=== PATIENT | female | born 1960 | race Hispanic/Latino ===

== ENCOUNTER 2016-07-15 11:41 | Observation (INO) | payer BC ==
[2016-07-15 11:43] VITALS: BMI 30.2
--- NOTE | 2016-07-15 12:01 | CT ---
PROCEDURE: CT HEAD WITHOUT CONTRAST. HISTORY: Code Stroke COMPARISON: 03/02/2015 TECHNIQUE: Axial computed tomography images were obtained through the head/brain without intravenous contrast. Radiation dose: Total exam DLP = 688.90 mGy-cm. This CT exam was performed using one or more of the following dose reduction techniques: Automated exposure control, adjustment of the mA and/or kV according to patient size, and/or use of iterative reconstruction technique. FINDINGS: HEMORRHAGE: No intracranial hemorrhage. BRAIN: No mass effect or edema. Right frontal encephalomalacia unchanged, consistent with old infarct. No evidence of acute infarct. There is some new curvilinear and punctate calcification in association with the right frontal encephalomalacia, likely dystrophic. VENTRICLES: No hydrocephalus. Ex vacuo dilatation of the frontal horn, right lateral ventricle, consistent with old infarct. CALVARIUM: Unremarkable. PARANASAL SINUSES: Unremarkable as visualized. No significant inflammatory changes. MASTOID AIR CELLS: Unremarkable as visualized. No inflammatory changes. OTHER FINDINGS: None. IMPRESSION: No intracranial hemorrhage. No evidence of acute infarct. 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 These findings were communicated to Dr. Raines by telephone at 11:57 a.m. on 07/15/2016.
[2016-07-15 12:09] LABS: ADD MANUAL DIFF? NO
[2016-07-15 12:14] LABS: BASO # 0.06 K/mm3 (0.0-2.0); BASO % 0.5 % (0.0-3.0); EOS # 0.2 (0.0-0.7); EOS % 1.4 % (1.5-5.0); GRAN # 5.48 (1.4-6.5); GRAN % 48.3 % (50.0-68.0); HEMATOCRIT 43.8 % (36.0-48.0); LYMPH % 44.3 % (22.0-35.0); MEAN CELL VOLUME 89.9 fL (80.0-105.0); MEAN CORPUSCULAR HEMOGLOBIN 30.6 pg (25.0-35.0); MEAN PLATELET VOLUME 12.4 fl (7.0-11.0); MONO # 0.6 (0.1-0.6); MONO % 5.5 % (1.0-6.0); PLATELET COUNT 174 10^3/uL (120.0-450.0); RED CELL DISTRIBUTION WIDTH 12.8 % (11.5-14.5); WHITE BLOOD COUNT 11.4 10^3/ul (4.5-11.0)
--- NOTE | 2016-07-15 12:18 | ED PDOC ---
Arrival/HPI - General Chief Complaint: Altered Mental Status Time Seen by Provider: 07/15/16 11:46 Historian: Patient, Other (friend) - History of Present Illness Narrative History of Present Illness (Text): 07/15/16 13:09 Patient is a 56 year old female with prior history of CVA presents to ED as a "rapid response" from the main lobby reportedly after she was in the car with a friend (passenger side) and friend noticed her to become acutely altered in mental status. Friend describes that she was her "normal self" earlier in the day and when she got in the car. Patient reportedly then suddenly started to "get stiff" and "started shaking" and "spit came from her mouth" for "a few seconds". Friend drove directly to the hospital and brought the patient through the main entrance where patient was brought to the ED. states patient has past history of stroke that has left her with some weakness to the left upper extremity. He also states she has been her normal self and this morning he saw her and she had no symptoms. No recent injury. No history of fevers. Time/Duration: Prior to Arrival Symptom Onset: Sudden Past Medical History - Past History Past History: No Previous - Infectious Disease Hx of Infectious Diseases: None - Tetanus Immunization Tetanus Immunization: Unknown - Past Medical History Past Medical History: No Previous - Cardiac Hx Cardiac Disorders: Yes Hx Hypertension: Yes - Pulmonary Hx Respiratory Disorders: No - Neurological HX Cerebrovascular Accident: Yes (2016 c/ left-sided deficits) - HEENT Hx HEENT Disorder: No - Renal Hx Renal Disorder: No - Endocrine/Metabolic Hx Endocrine Disorders: Yes Hx Diabetes Mellitus Type 2: Yes - Hematological/Oncological Hx Blood Disorders: No - Integumentary Hx Dermatological Disorder: No - Musculoskeletal/Rheumatological Hx Musculoskeletal Disorders: No - Gastrointestinal Hx Gastrointestinal Disorders: No Hx Bowel Surgery: No - Genitourinary/Gynecological Hx Genitourinary Disorders: No - Psychiatric Hx Psychophysiologic Disorder: No Hx Substance Use: No Family/Social History - Physician Review Nursing Documentation Reviewed: Yes Family/Social History: Unknown Family HX Smoking Status: Former Smoker Hx Alcohol Use: No Hx Substance Use: No Allergies/Home Meds Allergies/Adverse Reactions: Allergies No Known Allergies Allergy (Verified 07/15/16 16:51) Home Medications: Home Meds Medication Instructions Recorded Confirmed Aspirin [Aspirin Chewable] 81 mg PO DAILY 07/15/16 07/15/16 Atorvastatin [Lipitor] 80 mg PO DAILY 07/15/16 07/15/16 Losartan Potassium 50 mg PO DAILY 07/15/16 07/15/16 Review of Systems - Review of Systems Systems not reviewed;Unavailable: Altered Mental Status Constitutional: absent: Fevers Respiratory: absent: SOB Cardiovascular: Syncope Neurological: Seizure Physical Exam - Physical Exam Narrative Physical Exam (Text): Head: Atraumatic. Normocephalic. No facial bony tenderness or deformity noted. Eyes: PERRL. Visual acuity grossly intact. No nystagmus noted. ENT: Mucous membranes are moist and intact. Oropharynx is clear and symmetric. Small abrasion to tongue. Neck: Supple. Full ROM. No JVD. No lymphadenopathy. No midline tenderness. Cardiovascular: Tachycardic. Distal pulses intact. Pulmonary/Chest: Tachypneic, but clear lungs bilaterally. Abdominal: Soft and non-distended. There is no tenderness. No rebound, guarding, or rigidity. No organomegaly. Good bowel sounds. Back: No CVA tenderness. No midline tenderness. Extremities: No edema. No cyanosis. No clubbing. Distal pulses intact in lower and upper extremities. Skin: Skin is warm and dry. No petechiae. No purpura. Neurological: Awake. She moves all four extremities with good strength, is attempting to stand up and push herself off stretcher, will follow some commands with [place] civil engineer in training present, answers some questions. No facial droop. Psychiatric: Patient agitated, will follow some commands but is repetitive when answering questions. reports that she has been anxious. 07/15/16 21:02 Vital Signs Reviewed: Yes Vital Signs Temp Pulse Resp BP Pulse Ox 07/15/16 15:26 79 21 114/67 95 07/15/16 12:25 98.1 F 96 H 18 136/70 94 L 07/15/16 11:50 72 27 H 153/59 H 92 L Pulse: Tachycardic Appearance: Positive for: Ill-Appearing Mental Status: Positive for: Agitated Finger Stick Blood Glucose: 96 Medical Decision Making ED Course and Treatment: Patient's history obtained from house doctor who saw patient in [facility], the subsequently who presented to ED. states that she was her typical self this AM, but has had prior stroke BUT NO PRIOR SEIZURE. Patient agitated, confused, tachycardic. No respiratory distress noted. Patient was administered Ativan IM as history possibly suggestive of seizure and she is agitated, requires emergent CT head given acute change in mental status described. CODE STROKE CALLED as symptoms occurred immediately prior to arrival. PROCEDURE: CT HEAD WITHOUT CONTRAST. Field Coil Winder : Krishna Herrera MD Report Date : 07/15/2016 12:00:12 IMPRESSION: No intracranial hemorrhage. No evidence of acute infarct. 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 Chest X-ray Field Coil Winder: Krishna Quintanilla MD IMPRESSION: No active disease Patient on return from CT is re-evaluated, heart rate improved, she is more appropriate, answering questions, has some pain to left shoulder but no deformity noted. Patient has some difficulty moving left arm she states due to pain in shoulder, states she is acting "like herself" now and has had always had some weakness to her left arm after her previous stroke. I have discussed treatment plan with patient and family. Based on witness' description suspect new onset seizure. Case reviewed with Dr. Raul Marquez. Patient was placed on Keppra after reviewed this medication with family. Patient agreeable to treatment plan. NOT TPA CANDIDATE as patient is back to her baseline neurologically, symptoms consistent with seizure after review of history. Given limitations of CT head however, I discussed this with patient and patient' s family and stressed need for inpatient admission for serial neurologic exams and workup for new onset seizure. Patient and agreeable to this plan. Case discussed with Dr. Carrera covering for patient's PMD, who accepts to telemetry for new onset seizure - Lab Interpretations Lab Results: 07/15/16 12:05 07/15/16 12:05 Lab Results 07/15/16 12:05: Blood Type B NEGATIVE, Antibody Screen Negative, BBK History Checked No verified bt 07/15/16 12:05: Hemoglobin A1c 6.4 07/15/16 12:05: Sodium 140, Potassium 3.6, Chloride 106, Carbon Dioxide 16 L, Anion Gap 22 H, BUN 14, Creatinine 0.7, Est GFR ( Amer) > 60, Est GFR ( Non-Af Amer) > 60, Random Glucose 118 H, Calcium 9.2, Total Bilirubin 0.4, AST 47 H, ALT 79 H, Alkaline Phosphatase 72, Troponin I < 0.01, Total Protein 7.4, Albumin 4.3, Globulin 3.1, Albumin/Globulin Ratio 1.4, Triglycerides 144, Cholesterol 137, LDL Cholesterol Direct 60, HDL Cholesterol 54 07/15/16 12:05: PT 10.8, INR 1.00, APTT 23.1 L 07/15/16 12:05: WBC 11.4 H D, RBC 4.87, Hgb 14.9, Hct 43.8, MCV 89.9, MCH 30.6, MCHC 34.0, RDW 12.8, Plt Count 174, MPV 12.4 H, Gran % 48.3 L, Lymph % (Auto) 44.3 H, [place] % (Auto) 5.5, Eos % (Auto) 1.4 L, Baso % (Auto) 0.5, Gran # 5.48, Lymph # 5.0 H, [place] # 0.6, Eos # 0.2, Baso # 0.06 - RAD Interpretation Radiology Orders: 07/15/16 11:47 HEAD W/O (CODE STROKE) [CT] Stat CHEST PORTABLE [RAD] Stat - EKG Interpretation EKG Interpretation (Text): 07/15/16 22:26 EKG at 11:58 sinus tachycardia wirh right bundle branch block Interpreted by ED Physician: Yes Type: 12 lead EKG - Medication Orders Current Medication Orders: Aspirin (Aspirin Chewable) 81 mg PO DAILY [facility] Last Admin: 07/15/16 17:38 Dose: 81 mg Atorvastatin Calcium (Lipitor) 80 mg PO DAILY [facility] Last Admin: 07/15/16 17:41 Dose: 80 mg Carvedilol (Coreg) 3.125 mg PO BID [facility] Last Admin: 07/15/16 21:38 Dose: 3.125 mg Docusate Sodium (Colace) 200 mg PO HS [facility] Last Admin: 07/15/16 21:38 Dose: 200 mg Levetiracetam (Keppra 500mg Ivpb) 500 mg in 100 mls @ 400 mls/hr IV Q12 [facility] Last Admin: 07/15/16 21:37 Dose: 400 mls/hr Lorazepam (Ativan) 1 mg IVP Q6H PRN; Protocol PRN Reason: Anxiety Losartan Potassium (Cozaar) 50 mg PO DAILY [facility] Last Admin: 07/15/16 17:38 Dose: 50 mg Discontinued Medications Levofloxacin/Dextrose (Levaquin 500mg) 500 mg in 100 mls @ 100 mls/hr IVPB ONCE ONE Stop: 07/15/16 14:29 Last Admin: 07/15/16 14:27 Dose: 100 mls/hr Levetiracetam (Keppra 500mg Ivpb) 500 mg in 100 mls @ 400 mls/hr IVPB ONCE ONE Stop: 07/15/16 14:59 Last Admin: 07/15/16 15:37 Dose: 400 mls/hr Lorazepam (Ativan) Confirm Administered Dose 2 mg .ROUTE .STK-MED ONE Stop: 07/15/16 11:46 Last Admin: 07/15/16 12:07 Dose: Lorazepam (Ativan) 2 mg IM ONCE ONE Stop: 07/15/16 11:49 Last Admin: 07/15/16 11:45 Dose: 2 mg Pneumococcal Polyvalent Vaccine (Pneumovax 23 Vaccine) 0.5 ml IM .ONCE ONE Stop: 07/15/16 18:44 NIHSS Scale ([place]) Time Performed: 13:00 - How Severe is the Stoke Baseline Level of Consciousness: 0=Alert LOC to Questions: 0=Both comments correct LOC to commands: 0=Obeys both correctly Best Gaze: 0=Normal Visual: 0=No visual loss Facial: 0=Normal Motor Arm - Left: 1=Drift noted before 10 sec Motor Arm - Right: 0=No drift Motor Leg - Left: 0=No drift Motor Leg - Right: 0=No drift Limb Ataxia: 0=Absent Sensory: 0=Normal Best Language: 0=No aphasia Dysarthia: 0=Normal articulation Extinction & Inattention (Neglect): 0=Normal, no object Score: 1 Risk Level: Minor Stroke Risk rTPA Inclusion/Exclusion - Refusal of Treatment Patient Refused Treatment: No - Inclusion Criteria for Altepase Patient is 18 years or Older: Yes The Clinical Diagnosis of Ischemic Stroke That is Causing a Potentially Disabling Neurological Deficit: No Time of Onset is Well Established to be Less Than 270 Minute Before Treatment Would Begin: Yes Risk/Benefit Discussed With Patient/Family Member Present: Yes - Warning to TPA With Conditions Following Conditions Weighed Against Anticipated Benefit: Yes Condition: Rapid Improvement Disposition/Present on Arrival - Present on Arrival Any Indicators Present on Arrival: No History of DVT/PE: No History of Uncontrolled Diabetes: No Urinary Catheter: No History of Decub. Ulcer: No History Surgical Site Infection Following: None - Disposition Have Diagnosis and Disposition been Completed?: Yes Diagnosis: Altered mental status, Seizure Disposition: HOSPITALIZED Disposition Time: 13:10 Patient Plan: Admission Patient Problems: Current Active Problems Problem Status Onset Altered mental status Acute Seizure Acute Condition: FAIR
[2016-07-15 12:22] LABS: ALB/GLOB RATIO 1.4 (1.1-1.8); ALKALINE PHOSPHATASE 72 U/L (38-133); ALT/SGPT 79 U/L (7-56); AST/SGOT 47 U/L (15-39); BILIRUBIN,TOTAL 0.4 mg/dL (0.2-1.3); BLOOD UREA NITROGEN 14 mg/dL (7-21); CALCIUM 9.2 mg/dL (8.4-10.5); CARBON DIOXIDE 16 mmol/L (21-33); CHLORIDE 106 mmol/L (98-107); CHOLESTEROL 137 mg/dL (130-200); GFR AFRICAN-AMERICAN > 60; GLUCOSE,RANDOM 118 mg/dL (70-110); POTASSIUM 3.6 mmol/L (3.6-5.0); SODIUM 140 mmol/L (132-148); TOTAL PROTEIN 7.4 g/dL (5.8-8.3)
[2016-07-15 12:24] LABS: PARTIAL THROMBOPLASTIN TIME 23.1 Seconds (23.7-30.8)
--- NOTE | 2016-07-15 12:41 | RAD ---
HISTORY: ams COMPARISON: 11/19/2014 FINDINGS: LUNGS: No active pulmonary disease. PLEURA: No significant pleural effusion identified, no pneumothorax apparent. CARDIOVASCULAR: Normal. OSSEOUS STRUCTURES: No significant abnormalities. VISUALIZED UPPER ABDOMEN: Normal. OTHER FINDINGS: None. IMPRESSION: No active disease.
[2016-07-15] MEDS ORDERED: levETIRAcetam 500 MG in Sodium Chloride 0.9% 100 ML IV ONE (13:12)
[2016-07-15] MEDS ORDERED: levoFLOXacin 500 mg in D5W 500 MG/100 ML BAG IVPB ONE (13:30)
--- NOTE | 2016-07-15 13:58 | CP.PCM.PN ---
<Aakash Davila - Last Filed: 07/15/16 23:17> Subjective - Date & Time of Evaluation Date of Evaluation: 07/15/16 Time of Evaluation: 11:15 - Subjective Subjective: Rapid response was called on patient outside the front door of the hospital. Per the oil truck driver/friend the approximately 8min pt. was fine and then became "unconscoius" and flexed her right arm. The friend was close to the hospital and drove to the front entrance. Upon arrival of medical personnel, pt. was more responsive. Her HR was 97 and BP was 140/68. Glucose measured at that time was 96. She was promptly brought to the ER for further evaluation. Objective - Vital Signs/Intake and Output Vital Signs (last 24 hours): Temp Pulse Resp BP Pulse Ox 98.1 F 96 H 18 136/70 94 L 07/15/16 12:25 07/15/16 12:25 07/15/16 12:25 07/15/16 12:25 07/15/16 12:25 - Medications Medications: Current Medications Levofloxacin/Dextrose (Levaquin 500mg) 500 mg in 100 mls @ 100 mls/hr IVPB ONCE ONE Stop: 07/15/16 14:29 - Labs Labs: PT 10.8 Seconds (9.9-11.8) 07/15/16 12:05 INR 1.00 (0.93-1.08) 07/15/16 12:05 APTT 23.1 Seconds (23.7-30.8) L 07/15/16 12:05 <Slime Bishop - Last Filed: 07/16/16 11:33> Objective - Vital Signs/Intake and Output Vital Signs (last 24 hours): Temp Pulse Resp BP Pulse Ox 98.6 F 76 20 115/45 L 96 07/16/16 06:00 07/16/16 09:57 07/16/16 06:00 07/16/16 09:57 07/16/16 06:00 Intake and Output: 07/16/16 07/16/16 06:59 18:59 Intake Total 280 Balance 280 - Medications Medications: Current Medications Aspirin (Aspirin Chewable) 81 mg PO DAILY [facility] Last Admin: 07/16/16 09:57 Dose: 81 mg Atorvastatin Calcium (Lipitor) 80 mg PO DAILY [facility] Last Admin: 07/16/16 09:59 Dose: 80 mg Carvedilol (Coreg) 3.125 mg PO BID [facility] Last Admin: 07/16/16 09:57 Dose: 3.125 mg Docusate Sodium (Colace) 200 mg PO HS [facility] Last Admin: 07/15/16 21:38 Dose: 200 mg Levetiracetam (Keppra 500mg Ivpb) 500 mg in 100 mls @ 400 mls/hr IV Q12 [facility] Last Admin: 07/16/16 09:58 Dose: 400 mls/hr Lorazepam (Ativan) 1 mg IVP Q6H PRN; Protocol PRN Reason: Anxiety Losartan Potassium (Cozaar) 50 mg PO DAILY [facility] Last Admin: 07/16/16 09:57 Dose: 50 mg - Labs Labs: 07/16/16 06:49 07/16/16 06:49 PT 10.8 Seconds (9.9-11.8) 07/15/16 12:05 INR 1.00 (0.93-1.08) 07/15/16 12:05 APTT 23.1 Seconds (23.7-30.8) L 07/15/16 12:05 Attending/Attestation - Attestation I have personally seen and examined this patient.: Yes I have fully participated in the care of the patient.: Yes I have reviewed all pertinent clinical information, including history, physical exam and plan: No Notes (Text): 07/16/16 11:20 No medical information was available as pt was confused and the friend who brought her to the hospital had no knowledge of her medical history.Endorsed to ER . 07/16/16 11:32
[2016-07-15 14:27] LABS: TROPONIN I < 0.01 ng/mL
[2016-07-15] MEDS ORDERED: levETIRAcetam 500mg IVPB 500 MG/100 ML BAG IVPB ONE (14:45)
--- NOTE | 2016-07-15 18:30 | CON ---
DATE: 07/15/2016 CHIEF COMPLAINT: Altered mental status. HISTORY OF PRESENT ILLNESS: This is a 56-year-old woman with past medical history of hypertension, d yslipidemia with a CVA in 2014 affecting the right frontal parietal lobes where there is encephalomal acia evident on her CAT scan of the head with otherwise no acute intracranial abnormality, who presen go as per history, the patient was in the passenger side of the parts driver's car, where she was fine and became unconscious, started to flex her right arm became stiff and altered and was brought to the [facility] for further evaluation. While she is in the hospital she became more responsive. She was giv en a gram of Keppra indicating that it was a possible seizure given her history of cerebrovascular ac cident. Currently, she is sitting up at the edge of the bed, eating her soup moving all extremities, has residual left-sided hemiparesis, mostly in the left upper extremity. There is no aphasia or dys arthria. She is answering questions without any issues. PAST MEDICAL HISTORY: History of a right MCA CVA with residual left hemiparesis, hypertension and dy slipidemia. CURRENT MEDICATIONS: At home were aspirin, Lipitor and Cozaar. REVIEW OF SYSTEMS: A 14-point review of systems is negative except for the HPI. ALLERGIES: No known drug allergies. FAMILY HISTORY: Noncontributory. SOCIAL HISTORY: No illicit drug use, smoking, or ETOH abuse. PHYSICAL EXAMINATION: VITAL SIGNS: Temperature 98.1, pulse rate of 79, blood pressure 114/67, respiratory rate of 21, oxyg en saturation 95% on room air. GENERAL: The patient is sitting up in bed in no acute distress. HEENT: Atraumatic, normocephalic. PERRLA. Extraocular muscles intact. NECK: Supple, no JVD, no adenopathy noted. LUNGS: Clear to auscultation. No adventitious sounds. HEART: S1, S2, normal rate and rhythm. No murmurs, rubs, or gallops. ABDOMEN: Soft, nontender, nondistended. Bowel sounds are present. EXTREMITIES: No clubbing, no cyanosis. Peripheral pulses 2+ felt bilaterally. NEUROLOGIC: The patient is alert, oriented to person, place, month and year. Speech is fluent, with out any errors. Cranial nerves II through XII are intact. MOTOR: Strength is intact except for left upper extremity weakness, which is residual from her prior CVA. Toes are equivocal. SENSORY: Light touch, pinprick, proprioception, vibration intact. DTRs are 2+ throughout. COORDINATION: [id number] intact in the right upper extremity, but difficult due to residual left -sided weakness from the prior CVA. LABORATORY DATA: Sodium 140, potassium 3.6, chloride 106, carbon dioxide 16, BUN of 14, creatinine 0 .7, random glucose of 118. ASSESSMENT AND PLAN: This is a 56-year-old woman with a history of a right middle cerebral artery ce rebrovascular accident with residual left upper extremity weakness, who came in complaining of being altered, who is back to baseline. Her transient altered mental status is likely secondary to a focal seizure, complex and partial, from underlying right frontal parietal encephalomalacia from her cereb rovascular accident. At this time, recommend: 1. Keppra 500 mg p.o. b.i.d. 2. She will follow up with me in the office in regards to having an EEG since she already has an liborio ointment. 3. Continue with aspirin 81 and Lipitor 80 mg p.o. daily for stroke prevention. 4. Keep her blood pressure between 120 and 130 mmHg and a low sodium, low fat diet. At this time, s he is clinically stable. Thank you for this consult. Anand Marquez MD cc: [phone] TT: 07/15/2016 18:30:07 Confirmation # [id number] Dictation # [id number] dn
[2016-07-15] MEDS ORDERED: Pneumococcal 23-Valent Vaccine IM ONE (18:43)
[2016-07-15] MEDS: levETIRAcetam 500mg IVPB 500 MG/100 ML BAG IV SCH (21:37)
--- NOTE | 2016-07-15 21:42 | HP ---
HISTORY OF PRESENT ILLNESS: The patient is 56 years old, who was brought in by family. The patient was being driven by a family member and she was in the passenger seat. Earlier this morning she was fine, but all of a sudden her head slumped and she lost consciousness and her extremities started to get stiff and she started to have some shaking movement and she became confused and disoriented. By the time she was brought to Emergency Room, she gained her consciousness but she was somewhat confuse d, so she is being admitted for further evaluation. Upon arrival in the Emergency Room, she was foun d to be hypertensive and tachycardic. She was given Keppra. Denies any fever or chills. No history of nausea or vomiting prior to coming to the hospital. No history of fall or head trauma. PAST MEDICAL HISTORY: Is significant for: 1. CVA in 2015, where she had right middle cerebral artery stroke with residual left hemiparesis. 2. Hypertension. 3. Hyperlipidemia. ALLERGIES: She is not allergic to any medications. MEDICATIONS AT HOME: She is on aspirin 81 daily, Lipitor 80 mg daily and losartan 50 mg daily. SOCIAL HISTORY: She used to be a smoker in the past. Denies alcohol or drug use. REVIEW OF SYSTEMS: Significant for slight headache. PHYSICAL EXAMINATION: GENERAL: The patient is awake and alert, able to communicative. VITAL SIGNS: She is afebrile, pulse , respirations 20, blood pressure 114/67. LUNGS: Bilateral good airflow, no rhonchi or crackle. HEART: S1, S2 audible. ABDOMEN: Soft, nontender, no rebound, no guarding. NEUROLOGIC: The patient is awake and alert, able to communicate. She has left-sided weakness. Her left upper extremity is weaker than the left lower. LABORATORY DATA: WBC is 11.4, hemoglobin 14.9, hematocrit 43.8, platelet of 174. PT is 10.8, INR 1. 00, PTT 23. Chemistry: Sodium 140, potassium 3.6, chloride 106, CO2 of 16, BUN 14, creatinine 0.7, blood sugar 118. Hemoglobin A1c 6.4, AST 47, ALT 79. Total cholesterol 137, LDL 60, HDL is 54. She had CT scan of the brain done that shows old right frontal infarct with resulting encephalomalacia. ASSESSMENT: 1. Seizure disorder, probably secondary to encephalomalacia of the right frontal infarct area. 2. Hypertension. 3. Hyperlipidemia. PLAN: Will continue on aspirin, continue Lipitor and she has been on Keppra 500 twice a day, will co ntinue that. The patient will be evaluated by neurology and if she remains stable will discharge her in the a.m. and she will follow up with Dr. Marquez as an outpatient. Reginaldo Carrera MD cc: [phone] TT: 07/15/2016 21:41:16 dn
[2016-07-16 01:29] VITALS: RESP 20
[2016-07-16 06:15] VITALS: TEMP 98.6; O2SAT 96
[2016-07-16 06:51] LABS: ADD MANUAL DIFF? NO
[2016-07-16 07:09] LABS: ALB/GLOB RATIO 1.2 (1.1-1.8); ALKALINE PHOSPHATASE 55 U/L (38-133); ALT/SGPT 77 U/L (7-56); AST/SGOT 54 U/L (15-39); BLOOD UREA NITROGEN 12 mg/dL (7-21); CALCIUM 8.9 mg/dL (8.4-10.5); CARBON DIOXIDE 25 mmol/L (21-33); CHLORIDE 106 mmol/L (98-107); GFR AFRICAN-AMERICAN > 60; GLUCOSE,RANDOM 121 mg/dL (70-110); MAGNESIUM 2.3 mg/dL (1.7-2.2); SODIUM 139 mmol/L (132-148); TOTAL PROTEIN 6.8 g/dL (5.8-8.3)
[2016-07-16 07:11] LABS: BASO # 0.05 K/mm3 (0.0-2.0); BASO % 0.5 % (0.0-3.0); EOS # 0.1 (0.0-0.7); EOS % 1.1 % (1.5-5.0); GRAN # 6.91 (1.4-6.5); GRAN % 68.2 % (50.0-68.0); HEMATOCRIT 41.7 % (36.0-48.0); LYMPH # 2.3 (1.2-3.4); LYMPH % 22.5 % (22.0-35.0); MEAN CELL VOLUME 89.3 fL (80.0-105.0); MEAN CORPUSCULAR HEMOGLOBIN 30.2 pg (25.0-35.0); MEAN CORPUSCULAR HGB CONC 33.8 g/dl (31.0-37.0); MEAN PLATELET VOLUME 12.2 fl (7.0-11.0); MONO # 0.8 (0.1-0.6); MONO % 7.7 % (1.0-6.0); PLATELET COUNT 155 10^3/uL (120.0-450.0); WHITE BLOOD COUNT 10.1 10^3/ul (4.5-11.0)
[2016-07-16 07:26] LABS: FREE T4 1.02 ng/dL (0.78-2.19)
[2016-07-16 07:40] LABS: PROSTATE SPECIFIC ANTIGEN < 0.1 ng/mL; THYROID STIMULATING HORMONE 0.71 mIU/mL (0.46-4.68)
--- NOTE | 2016-07-16 09:37 | CARD ---
APPROVED REPORT EKG Measurement Heart [id number] MD [id number] <Conclusion> Sinus tachycardia Possible Left atrial enlargement Right bundle branch block, new STTW changes c/w ischemia, new Prolonged QTc, new
[2016-07-16] MEDS: levETIRAcetam 500mg IVPB 500 MG/100 ML BAG IV SCH (09:58)
[2016-07-16 10:00] VITALS: BP 115/45
--- NOTE | 2016-07-16 12:02 | RAD ---
PROCEDURE: Radiographs of the Left Shoulder HISTORY: Pain COMPARISON: No prior. FINDINGS: BONES: No fracture/ dislocation. JOINTS: No changes. SOFT TISSUES: Normal. OTHER FINDINGS: None. IMPRESSION: No fracture/dislocation.
--- NOTE | 2016-07-16 12:12 | PN ---
DATE: 07/16/2016 CHIEF COMPLAINT: Followup for altered mental status. SUBJECTIVE: No acute events overnight, no further seizures. The patient is stable on Keppra. No ap hasia noted. She still has some left upper shoulder pain for which she had a shoulder x-ray, report is pending. 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 MEDICATIONS: Reviewed by the nurse reconciliation sheet. REVIEW OF SYSTEMS: A 14-point review of systems is negative except for the HPI. ALLERGIES: No known drug allergies. SOCIAL HISTORY: No illicit drug use, smoking, or ETOH abuse. PHYSICAL EXAMINATION: VITAL SIGNS: Temperature 98.6, pulse rate 74, blood pressure 118/77, respiratory rate 20, oxygen 96% on room air. GENERAL: The patient is sitting up in bed in no acute distress. HEENT: Atraumatic, normocephalic. PERRLA. Extraocular muscles intact. NECK: Supple, no JVD, no adenopathy noted. LUNGS: Clear to auscultation. No adventitious sounds. HEART: S1, S2, normal rate and rhythm. No murmurs, rubs, or gallops. ABDOMEN: Soft, nontender, nondistended. Bowel sounds are present. EXTREMITIES: No clubbing, no cyanosis. Peripheral pulses 2+ felt bilaterally. NEUROLOGIC: The patient is alert, oriented to person, place, month and year. Speech is fluent, with out any errors. Cranial nerves II through XII are intact. MOTOR: Strength is intact except for some mild left upper extremity weakness with residual from prio r CVA. Toes are equivocal. SENSORY: Light touch, pinprick, proprioception, and vibrations intact. DTRs are 2+ throughout. COORDINATION: Wkyjlx-ts-vzzs intact in the right upper extremity, but difficult with the left due to a residual left-sided weakness from prior CVA. LABORATORY DATA: Sodium 139, potassium 4, chloride 106, carbon dioxide 25, BUN of 12, creatinine 0.6 , random glucose of 121, A1c 6.4. ASSESSMENT AND PLAN: This is a 56-year-old woman with history of right middle cerebral artery cerebr ovascular accident with residual upper extremity weakness who came in for being altered and stiffeni ng up and result is back to baseline. Her transient altered mental status is likely secondary to foc al complex partial seizure from underlying frontoparietal encephalomalacia from her prior cerebrovasc ular accident. AT THIS TIME, RECOMMEND: 1. Continue with Keppra 500 mg p.o. b.i.d. 2. She will follow up with me in the office to have an EEG and she has an appointment already. 3. Aspirin 81 mg and Lipitor 80 mg p.o. daily for stroke prevention. 4. Keep the blood pressure between 120-130 mmHg. Advised a low fat, low sodium diet. She is clinic ally stable from my standpoint. Anand Marquez MD cc: [phone] TT: 07/16/2016 12:12:20 Confirmation # [id number] Dictation # [id number] jn
[2016-07-16] MEDS ORDERED: Gadodiamide 287 MG/ML VIAL (15ML) IV ONE (12:25)
--- NOTE | 2016-07-16 12:59 | CARD ---
APPROVED REPORT EXAM: Two-dimensional and M-mode echocardiogram with Doppler and color Doppler. 2D DIMENSIONS IVSd1.4 (0.7-1.1cm)LVDd3.5 (3.9-5.9cm) PWd1.3 (0.7-1.1cm)LVDs2.5 (2.5-4.0cm) FS (%) 30.2 %LVEF (%)58.6 (>50%) M-Mode DIMENSIONS Left Atrium (MM)3.90 (2.5-4.0cm)Aortic Root2.70 (2.2-3.7cm) Aortic Cusp Exc.2.00 (1.5-2.0cm) Aortic Valve AoV Peak Bialowgm549.0cm/sAoV VTI36.3cmAO Peak GR.13mmHg LVOT Peak Bygfhkmi252.0cm/sLVOT VTI24.70cmAO Mean GR.7mmHg Mitral Valve MV E Fkjfdpjx27.1cm/sMV A Yoieowoc82.7cm/sE/A ratio1.4 TDI Lateral E' Peak V8.09cm/sMedial E' Peak V7.31cm/sE/Lateral E'7.1 E/Medial E'7.8 Tricuspid Valve TR Peak Zzqqiizj454zg/sTR Peak Gr.27mmHg LEFT VENTRICLE The left ventricle is normal size. There is mild to moderate concentric left ventricular hypertrophy. The left ventricular function is normal. The left ventricular ejection fraction is within the normal range. There is normal LV segmental wall motion. Transmitral Doppler flow pattern is Grade II-pseudonormal filling dynamics. RIGHT VENTRICLE The right ventricle is normal size. There is normal right ventricular wall thickness. The right ventricular systolic function is normal. ATRIA The left atrium size is normal. The right atrium size is normal. AORTIC VALVE The aortic valve is mildly thickened. No aortic regurgitation is present. MITRAL VALVE The mitral valve is mildly thickened. There is no mitral valve regurgitation noted. TRICUSPID VALVE There is trace tricuspid regurgitation. There is no pulmonary hypertension. GREAT VESSELS The aortic root is normal in size. The IVC is normal in size and collapses >50% with inspiration. PERICARDIAL EFFUSION There is no pericardial effusion. <Conclusion> The left ventricle is normal size. There is mild to moderate concentric left ventricular hypertrophy. The left ventricular function is normal. The left ventricular ejection fraction is within the normal range. There is normal LV segmental wall motion.
--- NOTE | 2016-07-16 13:38 | MRI ---
PROCEDURE: MRI BRAIN WITH AND WITHOUT CONTRAST HISTORY: seizure COMPARISON: Multiple prior head CTs most recently from 07/15/2016. MRI of the brain from 11/19/2014. TECHNIQUE: Multiplanar, multisequence MR images of the brain were obtained with and without intravenous contrast enhancement. FINDINGS: HEMORRHAGE: Punctate foci of low density in gradient echo images which might represent old hemorrhage versus calcifications. DWI: No restricted diffusion. BRAIN PARENCHYMA: There is an irregular area of encephalomalacia involving the right frontals and parietal lobes with associated curvilinear areas of high T1 signal intensity particularly along the residual sulci. T2 weighted images demonstrate CSF signal intensity in the previously identified segments of infarct. There is moderate amount of edema involving white matter of the right frontal and parietal lobes. However there is no significant mass effect or midline shift. There is ex vacuo dilatation of re- right lateral ventricle. ENHANCEMENT: Postcontrast T1 weighted images are extremely limited due to extensive patient motion. Repeat evaluation when patient is more cooperative is recommended. VENTRICLES: As above. CRANIUM: Unremarkable. ORBITS: Grossly unremarkable. PARANASAL SINUSES/MASTOIDS: Clear VASCULAR SYSTEM: Skull base flow voids intact. OTHER FINDINGS: None . 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 Moderate amount of edema involving white matter of the right frontal and parietal lobes without appreciable mass-effect or midline shift. Possible calcification versus old hemorrhage in the right frontal lobe. Ex vacuo dilatation of the right lateral ventricle. Postcontrast given images are essentially nondiagnostic. Repeat evaluation recommended when patient is more cooperative.
[2016-07-16 14:42] VITALS: PULSE 86
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
--- NOTE | 2016-07-17 07:51 | DS ---
The patient is a 56-year-old [place] female who was driving to go for shopping with her friends. She slumped over and had seizure-like activity, so she was brought to Emergency Room. She had a little postictal confusion, but then started to do well. She has old weakness of her left arm and shoulder. Complained of left shoulder pain. Otherwise, doing better. PHYSICAL EXAMINATION: VITAL SIGNS: She is afebrile, pulse 76, respirations 20, blood pressure 115/45. LUNGS: Bilateral fair airflow, no rhonchi or crackle. HEART: S1, S2 audible. No murmur. ABDOMEN: Soft, nontender, no rebound, no guarding. NEUROLOGIC: She is awake and alert, communicative. She has left upper extremity weakness. She does have limited range of motion because of pain and previous weakness. LABORATORY EXAMINATION: WBCs 10.1, hemoglobin 14, hematocrit 41, platelets 155. Chemistry: Sodium 139, potassium 4.0, chloride 106, CO2 25, BUN 12, creatinine 0.6, blood sugar of 121. Her AST 54, AL T 77. Two sets of cardiac enzymes are negative. ASSESSMENT: 1. History of cerebrovascular accident in the past. 2. Right carotid artery stenosis. 3. History of smoking in remote past. 4. Previous right middle cerebral artery territory cerebrovascular accident with residual left hemip aresis, more in the left upper extremity than lower extremity. 5. Left shoulder sprain. 6. Hyperlipidemia. PLAN: The patient is getting MRI of the brain. She is getting x-ray of the shoulder. I will contin ue her on aspirin. She desperately wants to go home for Mother's Day, so we will continue her on Lip itor, aspirin, losartan and she has been started on Keppra. Prescription is given. After she has MR I and x-ray of the shoulder, she will be discharged home after seen by Dr. Marquez. Reginaldo Carrera MD cc: [phone] TT: 07/17/2016 07:50:50 en
--- NOTE | 2016-07-18 09:07 | US ---
PROCEDURE: Bilateral carotid artery duplex ultrasound HISTORY: Carotid stenosis syncope PHYSICIAN(S): Krishna Heath MD. TECHNIQUE: Duplex sonography and color-flow Doppler were used to evaluate the carotid bifurcations and limited segments of the vertebral arteries bilaterally. FINDINGS: There appears to be in acute occlusion of the proximal right internal carotid artery. The right external carotid artery is patent with mildly elevated velocities. There is antegrade flow in the small right vertebral artery. The peak systolic velocity in the proximal left internal carotid artery is 90 cm/sec. This corresponds to a 20 to 39% proximal left ICA stenosis. Normal systolic velocities are noted in the proximal left external carotid artery. There is antegrade flow in the left vertebral artery. IMPRESSION: 1. Apparent acute occlusion of the proximal right internal carotid artery. 2. 20 -39 percent proximal left ICA stenosis. 3. Antegrade flow in both vertebral arteries.
== END 2016-07-16 15:14 | disposition home or self-care (01) ==
LOC: ED 11:41 → ERH 13:10 → INTOOBSV 13:10 → ERH 14:14 → 2RNO 16:46
PROVIDERS: ADMIT Internal Medicine; ATTEND Internal Medicine
DX: I69.398 Other sequelae of cerebral infarction (principal); G93.89 Other specified disorders of brain; G40.209 Localization-related (focal) (partial) symptomatic epilepsy and epileptic syndromes with complex partial seizures, not intractable, without status epilepticus; I69.354 Hemiplegia and hemiparesis following cerebral infarction affecting left non-dominant side; I69.334 Monoplegia of upper limb following cerebral infarction affecting left non-dominant side; I10 Essential (primary) hypertension; I65.21 Occlusion and stenosis of right carotid artery; E78.5 Hyperlipidemia, unspecified; R00.0 Tachycardia, unspecified; Z79.82 Long term (current) use of aspirin; Z87.891 Personal history of nicotine dependence
CPT/HCPCS: 36415; 70450; 70553; 71010; 73030; 80053; 80061; 82948; 83036; 83735; 84439; 84443; 84484; 85025; 85610; 85730; 86850; 86900; 93005; 93306; 93880; 96365; 96372; 96375; 96376; 99285; A9579; G0378; J1953; J2060